=== PATIENT | male | born 1995 | race Caucasian/White ===

== ENCOUNTER 2019-11-17 04:33 | Emergency (ER) | payer OTHER, BC ==
[~2019-11-17] VITALS: Ht 180 cm; Wt 98.0 kg
[2019-11-17] MEDS ORDERED: NS IV 1000 ML 1,000 ML IV SCH (05:12)
[2019-11-17] MEDS ORDERED: TETANUS,DIPTH,PERTUSS P/F (BOOSTRIX) 0.5 ML VIAL IM ONE (05:15)
[2019-11-17 05:37] LABS: BASOPHILS % (AUTO) 0 % (0-10); EOSINOPHILS # (AUTO) 0.1 10^3/uL (0.0-0.3); EOSINOPHILS % (AUTO) 1 % (0-10); HEMATOCRIT 46 % (40-54); HEMOGLOBIN 16.2 G/DL (13.3-17.7); LYMPHOCYTES # (AUTO) 1.1 X 10^3 (1.0-4.0); LYMPHOCYTES % (AUTO) 10 % (12-44); MEAN CORPUSCULAR HEMOGLOBIN 30 PG (25-34); MEAN CORPUSCULAR HGB CONC 35 G/DL (32-36); MEAN CORPUSCULAR VOLUME 84 FL (80-99); MEAN PLATELET VOLUME 8.9 FL (7.4-10.4); MONOCYTES # (AUTO) 0.7 X 10^3 (0.0-1.0); MONOCYTES % (AUTO) 6 % (0-12); NEUTROPHILS # (AUTO) 9.6 X 10^3 (1.8-7.8); NEUTROPHILS % (AUTO) 83 % (42-75); PLATELET COUNT 255 10^3/uL (130-400); RED CELL DISTRIBUTION WIDTH 12.8 % (10.0-14.5); WHITE BLOOD COUNT 11.5 10^3/uL (4.3-11.0)
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
[2019-11-17] MEDS ORDERED: ONDANSETRON 4 MG/2 ML (SDV) Z0FRAN IVP ONE (05:45)
[2019-11-17 05:46] LABS: INR 0.9 (0.8-1.4); PROTHROMBIN TIME PATIENT 12.9 SEC (12.2-14.7)
[2019-11-17 05:52] LABS: ALANINE AMINOTRANSFERASE 55 U/L (0-55); ALKALINE PHOSPHATASE 80 U/L (40-136); AMYLASE 49 U/L (25-125); BILIRUBIN,TOTAL 0.4 MG/DL (0.1-1.0); BUN/CREATININE RATIO 7; CALCIUM 9.3 MG/DL (8.5-10.1); CARBON DIOXIDE 20 MMOL/L (21-32); CHLORIDE 105 MMOL/L (98-107); CREATINE KINASE 318 U/L (30-200); GFR ESTIMATED > 60; GLUCOSE 129 MG/DL (70-105); LIPASE 31 U/L (8-78); MAGNESIUM 2.1 MG/DL (1.6-2.4); POTASSIUM 3.7 MMOL/L (3.6-5.0); SODIUM 138 MMOL/L (135-145); TOTAL PROTEIN 8.2 GM/DL (6.4-8.2)
[2019-11-17 05:59] LABS: CREATINE KINASE MB 2.2 NG/ML (<6.6)
[2019-11-17] MEDS ORDERED: LACTATED RINGERS 1,000 ML IV ONE (06:51)
[2019-11-17] MEDS ORDERED: NS 100 ML (IVPB) BAG IV ONE (07:00)
[2019-11-17] MEDS ORDERED: IOHEXOL 350 MG/ML 100 ML (OMNIPAQUE 350) VIAL IV ONE (07:00)
[2019-11-17] MEDS ORDERED: HOLD METFORMIN - RECEIVED CONTRAST 20 ML VIAL IV SCH (07:00)
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
[2019-11-17 07:05] LABS: BILIRUBIN,URINE NEGATIVE (NEGATIVE); CLARITY,URINE CLEAR; COLOR,URINE YELLOW; GLUCOSE, URINE (UA) NEGATIVE (NEGATIVE); KETONES,URINE NEGATIVE (NEGATIVE); LEUKOCYTE ESTERASE ,URINE NEGATIVE (NEGATIVE); NITRITE,URINE NEGATIVE (NEGATIVE); PROTEIN,URINE NEGATIVE (NEGATIVE)
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
[2019-11-17 07:12] LABS: BACTERIA,URINE NEGATIVE /HPF
[2019-11-17 07:20] LABS: AMPHETAMINE SCREEN, URINE NEGATIVE (NEGATIVE); BARBITURATE SCREEN URINE NEGATIVE (NEGATIVE); BENZODIAZEPINES SCREEN URINE NEGATIVE (NEGATIVE); CANNABINOID SCREEN, URINE NEGATIVE (NEGATIVE); COCAINE SCREEN URINE NEGATIVE (NEGATIVE); METHADONE STAT NEGATIVE (NEGATIVE); METHAMPHETAMINE SCREEN URINE S NEGATIVE (NEGATIVE); OPIATE SCREEN URINE NEGATIVE (NEGATIVE); OXYCODONE STAT NEGATIVE (NEGATIVE); PROPOXYPHENE STAT NEGATIVE (NEGATIVE); TRICYCLIC ANTIDEPRESSANTS SCRE NEGATIVE (NEGATIVE)
[2019-11-17] MEDS ORDERED: CYCL10TA9 PO (07:24)
[2019-11-17] MEDS ORDERED: NAPR-915 PO (07:24)
[2019-11-17 07:43] VITALS: BP 137/73
== END 2019-11-17 07:43 | disposition home or self-care (01) ==
LOC: ER 04:36
DX: S16.1XXA Strain of muscle, fascia and tendon at neck level, initial encounter (principal); S39.012A Strain of muscle, fascia and tendon of lower back, initial encounter; S20.20XA Contusion of thorax, unspecified, initial encounter; S30.1XXA Contusion of abdominal wall, initial encounter; T14.8XXA Other injury of unspecified body region, initial encounter; F10.129 Alcohol abuse with intoxication, unspecified; Z23 Encounter for immunization; V40.5XXA Car driver injured in collision with pedestrian or animal in traffic accident, initial encounter
CPT/HCPCS: 36415; 70450; 71045; 71260; 72125; 72128; 72131; 72170; 74177; 80053; 80306; 80320; 81000; 82150; 82550; 82553; 83605; 83690; 83735; 83874; 84484; 85025; 85610; 85730; 90471; 90715; 93005; 93041; 96361; 96374